=== PATIENT | female | born 1990 | race Caucasian/White ===

== ENCOUNTER 2016-07-13 12:26 | Emergency (ER) ==
[2016-07-13 12:34] VITALS: BP 129/84; TEMP 98.3; BMI 29.0
--- NOTE | 2016-07-13 13:19 | ED.PDOC ---
General ED Provider: Dr. MICHAEL FINE JR Chief Complaint: Tooth Problem Stated Complaint: WOKE UP THIS MORNING WITH FRONT TOOTH PAIN AFTER BRUSHING TEETH.[End]right left upper canine 0930 98.3 93 16 98% 129/84 01/02 depr anx- unable to see dr brush until next month or [facility] until next week is informed she will need two root canals Time Seen by Physician: 13:18 Mode of Arrival: Walk-In Information Source: Patient, Family Exam Limitations: No limitations Primary Care Provider: MAGDY WILKERSON Nursing and Triage Documentation Reviewed and Agree: No Review of Systems - Review Of Systems Constitutional: Reports: No symptoms Eyes: Reports: No symptoms Ears, Nose, Mouth, Throat: Reports: Mouth pain (tender upper outer incisiors symmetric cavities with loss of fillings now further crumbling) Respiratory: Reports: No symptoms Cardiac: Reports: No symptoms GI: Reports: No symptoms : Reports: No symptoms Musculoskeletal: Reports: No symptoms Skin: Reports: No symptoms Neurological: Reports: No symptoms Endocrine: Reports: No symptoms Hematologic/Lymphatic: Reports: No symptoms All Other Systems: Other Past Medical History - Past Medical History Previously Healthy: Yes Endocrine: Reports: None Cardiovascular: Reports: None Respiratory: Reports: None Hematological: Reports: None Gastrointestinal: Reports: None Genitourinary: Reports: None Neuro/Psych: Reports: Anxiety, Depression Musculoskeletal: Reports: None Cancer: Reports: None Last Menstrual Period: 07/12 Other 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 Medical 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 - Surgical History General Surgical History: Reports: Tonsillectomy, Adenoidectomy - Family History Family History: Reports: Other (mother in with gastroenteritis), Unknown - Social History Smoking Status: Current some day smoker Hx Substance Use: No Alcohol Screening: None - Immunizations Tetanus Shot up to Date: Yes Physical Exam - Physical Exam Appearance: Well-appearing Pain Distress: Moderate Eyes: ALEC, EOMI, Conjunctiva clear ENT: Oropharynx normal (except for tooth pain ntederness slight maxillary tenderness left >right) Neck: Supple Respiratory: Airway patent, Breath sounds clear, Breath sounds equal, Respirations nonlabored Cardiovascular: RRR, Pulses normal, No rub, No murmur GI/: Soft, Nontender, No masses, Bowel sounds normal, No Organomegaly Musculoskeletal: Normal strength, ROM intact, No edema, No calf tenderness Skin: Warm, Dry, Normal color Neurological: Sensation intact, Motor intact, Reflexes intact, Cranial nerves intact, Alert, Oriented Psychiatric: Affect appropriate, Mood appropriate Critical Care Note - Critical Care Note Total Time (mins): 0 Course - Course Vital Signs: Temp Pulse Resp BP Pulse Ox 07/13/16 12:27 98.3 F 93 H 16 129/84 98 Departure - Departure Time of Disposition: 13:30 Disposition: HOME SELF-CARE Discharge Problem: Toothache Instructions: Dental Caries (ED), Toothache (ED) Condition: Good Pt referred to PMD for follow-up: Yes Additional Instructions: antibiotic until gone Pyote for pain not controlled by ibuprofen follow up with dentist as soon as possible Prescriptions: Hydrocodone Bit/Acetaminophen [Pyote 5-325] 1 - 2 tab PO Q6HR PRN #12 tablet PRN Reason: pain Ibuprofen [Motrin] 600 mg PO QID PRN #30 tablet PRN Reason: PAIN Penicillin V Potassium 500 mg PO QID #28 tablet Allergies/Adverse Reactions: Allergies Sulfa (Sulfonamide Antibiotics) Adverse Reaction (Verified 07/13/16 12:34) HIVES/SWELLING Home Medications: Ambulatory Orders Alprazolam [Xanax] 0.5 mg PO TID PRN 08/27/15 Naproxen [Naprosyn] 500 mg PO DIRECTED PRN 04/01/16 Hydrocodone Bit/Acetaminophen [Pyote 5-325] 1 - 2 tab PO Q6HR PRN #12 tablet Ibuprofen [Motrin] 600 mg PO QID PRN #30 tablet 07/13/16 Penicillin V Potassium 500 mg PO QID #28 tablet 07/13/16
== END 2016-07-13 13:38 | disposition home or self-care (01) ==
LOC: ED 12:26
DX: K08.89 Other specified disorders of teeth and supporting structures (principal); K02.7 Dental root caries; F17.210 Nicotine dependence, cigarettes, uncomplicated
CPT/HCPCS: 99282

== ENCOUNTER 2016-09-04 11:10 | Emergency (ER) | payer OTHER ==
[2016-09-04 11:11] VITALS: BMI 29.0
[2016-09-04 11:17] VITALS: BP 116/82; TEMP 97.2
[2016-09-04] MEDS ORDERED: ZOFRAN 4 MG/2 ML IM STA (11:34)
[2016-09-04] MEDS ORDERED: MORPHINE 4 MG/ML SYRINGE IM STA (11:34)
[2016-09-04] MEDS ORDERED: TORADOL IM STA (11:35)
[2016-09-04 11:56] LABS: BASOPHILS # (AUTO) 0.1 K/uL (0-0.2); BASOPHILS % (AUTO) 0.6 % (0.0-3.0); EOSINOPHILS # (AUTO) 0.2 K/ul (0.0-0.7); EOSINOPHILS % (AUTO) 2.1 % (0.0-7.0); HEMATOCRIT 39.3 % (37.0-47.0); HEMOGLOBIN 13.3 g/dl (12.0-16.0); IMMATURE GRANULOCYTE % (AUTO) 0.1 % (0.0-5.0); LYMPHOCYTES # (AUTO) 2.6 K/uL (0.60-3.4); LYMPHOCYTES % (AUTO) 31.6 (10.0-50.0); MEAN CORPUSCULAR HEMOGLOBIN 30.8 pg (27.0-31.0); MEAN CORPUSCULAR HGB CONC 33.8 (31.8-35.4); MONOCYTES # (AUTO) 0.6 K/uL (0.4-2.0); NEUTROPHILS # (AUTO) 4.8 K/ul (2.0-6.9); NEUTROPHILS % (AUTO) 58.6; PLATELET COUNT 331 10^3/uL (140-440); RED BLOOD COUNT 4.32 10^6/ul (4.20-5.40); WHITE BLOOD COUNT 8.19 K/ul (4.6-10.2)
[2016-09-04 12:07] LABS: BILIRUBIN,URINE Negative (NEGATIVE); KETONES,URINE Negative (NEGATIVE); LEUKOCYTE ESTERASE ,URINE Negative (NEGATIVE); NITRITE,URINE Negative (NEGATIVE); PH,URINE 7.5 (5-9); PROTEIN,URINE Negative (NEGATIVE); URINE, BLOOD Negative (NEGATIVE)
[2016-09-04 12:10] LABS: ADD URINE MICROSCOPIC NO; URINE PREGNANCY INTERNAL QC INTERNAL QC VALID
[2016-09-04 12:15] LABS: ALBUMIN 3.6 g/dL (3.4-5.0); ALBUMIN/GLOBULIN RATIO 1.24; ANION GAP 12.1; BILIRUBIN,TOTAL 0.4 mg/dL (0.00-1.20); BUN/CREATININE RATIO 11.42; CALCIUM 9.2 mg/dL (8.2-10.2); CREATININE 0.7 mg/dL (0.60-1.30); POTASSIUM 4.1 mmol/L (3.5-5.10); TOTAL PROTEIN 6.5 g/dL (6.4-8.2)
--- NOTE | 2016-09-04 12:38 | CT ---
EXAM: CT of the abdomen pelvis without contrast History: Right lower quadrant abdominal pain and vomiting. Comparison: CT abdomen pelvis 05/27/2016 Technique: Multiplanar CT images through the abdomen pelvis were obtained without the administratio n of IV contrast Findings: Lung bases are free of consolidation. No acute osseous abnormalities. No renal stones and no hydronephrosis. The appendix is not dilated or inflamed. No discrete gallst ones identified by CT. No focal liver or splenic lesions. No bowel obstruction. No peripancreatic inflammation. Adrenal glands are unremarkable. No free air. Scattered colonic stool. No bladder wall thickening. Adnexal structures are not well evaluated without contrast material but demonstra te no grossly acute findings. Trace pelvic fluid can be physiologic in a young female patient. No perirectal inflammation. Small foci of subcutaneous air adjacent to the right lateral gluteal muscul ature, probably from injection Impression: No acute intra-abdominal or pelvic process.
--- NOTE | 2016-09-04 12:47 | ED.PDOC ---
General ED Provider: Dr. GONZALO BOYLE Chief Complaint: Abdominal Pain Stated Complaint: abdominal pain Time Seen by Physician: 11:11 (nursing present) Mode of Arrival: Walk-In Information Source: Patient Exam Limitations: No limitations Primary Care Provider: MAGDY WILKERSON Nursing and Triage Documentation Reviewed and Agree: Yes GI Complaint Exam - Abdominal Pain Complaint/Exam Onset: Gradual Duration: 1 day Symptoms Are: Still present Timing: Constant Initial Severity: Moderate Current Severity: Moderate Location of Pain: Discrete Alleviating: Reports: None Associated Signs and Symptoms: Denies: Diaphoresis, Fever, Cough, Chest pain, Dizziness, Back pain, Constipation, Blood in stool, Dysuria, Urinary frequency, Decreased urine output, Decreased appetite, Vaginal bleeding, Vaginal discharge , Nausea, Vomiting, Diarrhea, Sore throat, Decreased activity Related History: Reports: Similar episode AAA Risk Factors: Reports: None Cardiac Risk Factors: Reports: None Ectopic Risk Factors: Reports: None Ovarian Torsion Risk Factors: Reports: None Surgical Obstruction Risk Factors: Reports: None Related Surgical History: Reports: None Patient Rh Status: Unknown Abdominal Findings: Present: None Differential Diagnoses: Appendicitis, Bowel Obstruction, Constipation, Hepatitis , Pancreatitis Review of Systems - Review Of Systems Constitutional: Reports: No symptoms Eyes: Reports: No symptoms Ears, Nose, Mouth, Throat: Reports: No symptoms Respiratory: Reports: No symptoms Cardiac: Reports: No symptoms GI: Reports: Abdominal pain : Reports: No symptoms Musculoskeletal: Reports: No symptoms Skin: Reports: No symptoms Neurological: Reports: No symptoms Endocrine: Reports: No symptoms Hematologic/Lymphatic: Reports: No symptoms All Other Systems: Reviewed and Negative Past Medical History - Past Medical History Previously Healthy: Yes Endocrine: Reports: None Cardiovascular: Reports: None Respiratory: Reports: None Hematological: Reports: None Gastrointestinal: Reports: None Genitourinary: Reports: None Neuro/Psych: Reports: Anxiety, Depression Musculoskeletal: Reports: None Cancer: Reports: None Last Menstrual Period: 08/22/16 Other 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 Medical 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 - Surgical History General Surgical History: Reports: Tonsillectomy, Adenoidectomy - Family History Family History: Reports: Other (mother in with gastroenteritis), Unknown - Social History Smoking Status: Current some day smoker Hx Substance Use: No Alcohol Screening: None - Immunizations Tetanus Shot up to Date: Yes Physical Exam - Physical Exam Appearance: Well-appearing, No pain distress, Well-nourished Eyes: ALEC, EOMI, Conjunctiva clear ENT: Ears normal, Nose normal, Oropharynx normal Respiratory: Airway patent, Breath sounds clear, Breath sounds equal, Respirations nonlabored Cardiovascular: RRR, Pulses normal, No rub, No murmur GI/: Soft, Nontender, No masses, Bowel sounds normal, No Organomegaly Musculoskeletal: Normal strength, ROM intact, No edema, No calf tenderness Skin: Warm, Dry, Normal color Neurological: Sensation intact, Motor intact, Reflexes intact, Cranial nerves intact, Alert, Oriented Psychiatric: Affect appropriate, Mood appropriate Interpretation - Radiology Interpretation Radiology Interpretation By: Radiologist Radiology Results: No acute changes Critical Care Note - Critical Care Note Total Time (mins): 0 Course - Course Hematology/Chemistry: 09/04/16 11:45 09/04/16 11:45 Orders, Labs, Meds: Lab Review 09/04/16 09/04/16 11:45 12:00 WBC 8.19 RBC 4.32 Hgb 13.3 Hct 39.3 MCV 91.0 MCH 30.8 MCHC 33.8 RDW Coeff of Tomi 12.2 Plt Count 331 Immature Gran % (Auto) 0.1 Neut % (Auto) 58.6 Lymph % (Auto) 31.6 [place] % (Auto) 7.0 Eos % (Auto) 2.1 Baso % (Auto) 0.6 Immature Gran # (Auto) 0.0 Neut # 4.8 Lymph # 2.6 [place] # 0.6 Eos # 0.2 Baso # 0.1 Sodium 140 Potassium 4.1 Chloride 104 Carbon Dioxide 28 Anion Gap 12.1 BUN 8 Creatinine 0.70 Estimated GFR (MDRD) 101.00 BUN/Creatinine Ratio 11.42 Glucose 79 Calcium 9.2 Total Bilirubin 0.40 AST 20 ALT 15 Alkaline Phosphatase 67 Total Protein 6.5 Albumin 3.6 Globulin 2.9 Albumin/Globulin Ratio 1.24 Urine Color Yellow Urine Clarity Clear Urine pH 7.5 Ur Specific [place] 1.015 Urine Protein Negative Urine Glucose (UA) Negative Urine Ketones Negative Urine Blood Negative Urine Nitrite Negative Urine Bilirubin Negative Urine Urobilinogen 0.2 Ur Leukocyte Esterase Negative Urine Test Negative Orders Category Date Time Status CBC W/ AUTO DIFF Stat LAB 09/04/16 11:34 Ordered COMPREHENSIVE METABOLIC PANEL Stat LAB 09/04/16 11:34 Ordered URINALYSIS C & S IF INDICATED Stat LAB 09/04/16 11:34 Uncollected URINE Stat LAB 09/04/16 11:34 Uncollected Ketorolac Tromethamine [Toradol] MEDS 09/04/16 11:35 Stat 60 mg IM ONCE STA Morphine Sulfate [Morphine 4 mg/ml Syringe] MEDS 09/04/16 11:34 Stat 4 mg IM ONCE STA Ondansetron HCl/Pf [Zofran 4 mg/2 ml] MEDS 09/04/16 11:34 Stat 4 mg IM ONCE STA CT ABDOMEN/PELVIS WO CONTRAST Stat RADS 09/04/16 11:34 Ordered Medications Discontinued Medications Generic Name Dose Route Start Last Admin Trade Name Freq PRN Reason Stop Dose Admin Ketorolac Tromethamine 60 mg 09/04/16 11:35 09/04/16 11:59 Toradol IM 09/04/16 11:36 60 mg ONCE STA Administration Morphine Sulfate 4 mg 09/04/16 11:34 09/04/16 11:56 Morphine 4 Mg/Ml Syringe IM 09/04/16 11:35 4 mg ONCE STA Administration Ondansetron HCl 4 mg 09/04/16 11:34 09/04/16 11:58 Zofran 4 Mg/2 Ml IM 09/04/16 11:35 4 mg ONCE STA Administration Vital Signs: Temp Pulse Resp BP Pulse Ox 09/04/16 11:11 97.2 F L 84 20 116/82 98 Departure - Departure Time of Disposition: 12:47 Disposition: HOME SELF-CARE Discharge Problem: Abdominal pain Instructions: Abdominal Pain (ED) Condition: Good Pt referred to PMD for follow-up: No Additional Instructions: Please call your Family Physician as soon as possible to schedule a follow-up appointment. Allergies/Adverse Reactions: Allergies Sulfa (Sulfonamide Antibiotics) Adverse Reaction (Verified 09/04/16 11:18) HIVES/SWELLING Home Medications: Ambulatory Orders Alprazolam [Xanax] 0.5 mg PO TID PRN 08/27/15
== END 2016-09-04 13:01 | disposition home or self-care (01) ==
LOC: ED 11:10
DX: R10.9 Unspecified abdominal pain (principal); F17.210 Nicotine dependence, cigarettes, uncomplicated
CPT/HCPCS: 36415; 80053; 81001; 81025; 85025; 96372; 99283

== ENCOUNTER 2016-10-31 12:13 | Emergency (ER) ==
[2016-10-31 12:13] VITALS: BMI 29.0
[2016-10-31 12:18] VITALS: BP 110/74; TEMP 99.5
[2016-10-31] MEDS ORDERED: ZOFRAN 4 MG/2 ML IM STA (12:46)
[2016-10-31 12:56] LABS: BASOPHILS % (AUTO) 0.2 % (0.0-3.0); EOSINOPHILS % (AUTO) 0.3 % (0.0-7.0); HEMATOCRIT 39.1 % (37.0-47.0); HEMOGLOBIN 13.4 g/dl (12.0-16.0); IMMATURE GRANULOCYTE % (AUTO) 0.3 % (0.0-5.0); LYMPHOCYTES # (AUTO) 0.9 K/uL (0.60-3.4); LYMPHOCYTES % (AUTO) 8.8 (10.0-50.0); MEAN CORPUSCULAR HEMOGLOBIN 31.7 pg (27.0-31.0); MEAN CORPUSCULAR HGB CONC 34.3 (31.8-35.4); MEAN CORPUSCULAR VOLUME 92.4 fl (81.0-99.0); MONOCYTES # (AUTO) 0.3 K/uL (0.4-2.0); MONOCYTES % (AUTO) 3.5 (0-10); NEUTROPHILS # (AUTO) 8.4 K/ul (2.0-6.9); NEUTROPHILS % (AUTO) 86.9; PLATELET COUNT 289 10^3/uL (140-440); RED BLOOD COUNT 4.23 10^6/ul (4.20-5.40)
[2016-10-31 13:13] LABS: ALBUMIN 3.6 g/dL (3.4-5.0); ALBUMIN/GLOBULIN RATIO 1.2; BILIRUBIN,TOTAL 1.31 mg/dL (0.00-1.20); BUN/CREATININE RATIO 15.38; CALCIUM 9.1 mg/dL (8.2-10.2); CREATININE 0.78 mg/dL (0.60-1.30); TOTAL PROTEIN 6.6 g/dL (6.4-8.2)
[2016-10-31 13:14] LABS: SERUM PREGNANCY INTERNAL QC INTERNAL QC VALID
[2016-10-31 13:37] LABS: BILIRUBIN,URINE Negative (NEGATIVE); KETONES,URINE Negative (NEGATIVE); LEUKOCYTE ESTERASE ,URINE Negative (NEGATIVE); NITRITE,URINE Negative (NEGATIVE); PH,URINE 8.5 (5-9); PROTEIN,URINE Negative (NEGATIVE); URINE, BLOOD Trace-intact (NEGATIVE)
[2016-10-31 13:38] LABS: ADD URINE MICROSCOPIC YES
--- NOTE | 2016-10-31 13:48 | DI ---
EXAM: Chest two view, frontal and lateral views. HISTORY: Cough. COMPARISON: 08/27/2015. FINDINGS: The heart size is normal. There is no pulmonary vascular congestion. The lungs are yana r. No pleural effusion or pneumothorax is seen. No acute osseous abnormality identified. Since prior study, there has been no significant interval change. IMPRESSION: No acute cardiopulmonary process.
--- NOTE | 2016-10-31 13:52 | CT ---
EXAM: CT Abdomen without contrast. CT Pelvis without contrast. HISTORY: Diffuse abdominal pain. Vomiting, diarrhea, nausea. COMPARISON: 09/04/2016. TECHNIQUE: Multiple axial images of the abdomen and pelvis were obtained without intravenous contra st. Images were reformatted in the coronal plane. FINDINGS: Please note that evaluation of the abdominal and pelvic structures is limited due to lack of intravenous contrast. Lung bases are clear. No acute osseous abnormality identified. The liver, gallbladder, pancreas, spleen, adrenal glands, and kidneys demonstrate normal contour. The bowel is normal in course and caliber without evidence for obstruction or inflammatory process. Appendix is normal. Uterus demonstrates normal contour. Urinary bladder is not well distended. S mall amount of free pelvic fluid is within physiologic range. No free air identified. Multiple sma ll mesenteric lymph nodes are present. IMPRESSION: No acute abnormality within the abdomen or pelvis.
--- NOTE | 2016-10-31 14:24 | ED.PDOC ---
General ED Provider: Dr. GONZALO BOYLE Chief Complaint: Nausea/Vomiting Stated Complaint: n/v/ abdominal pain leg cramps Time Seen by Physician: 12:30 Information Source: Patient Exam Limitations: No limitations Primary Care Provider: MAGDY WILKERSON Nursing and Triage Documentation Reviewed and Agree: Yes Miscellaneous Complaint Exam - Complex/Multi-System Complaint/Exam Onset/Duration: pt has lower ext crapming pain with vomiting and diarrhea Symptoms Are: Resolved Episodes Lasting: Minutes Initial Severity: Moderate Current Severity: None Location of Pain: lower ext and abdomen Pain Radiates to: lower legs Character: cramping pain Associated Signs and Symptoms: Reports: Weakness, Nausea, Vomiting, Diarrhea, Abdominal pain. 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, Prior MRSA, Prior VRE, Recent trauma, Remote trauma Recent Echo/LV Function: No Respiratory Distress: None JVD Present: No Tachypnea Present: No Stridor Present: No Abdominal Findings: Present: Normal findings Glascow Coma Scale (see protocol): 15 Meningeal Signs Positive: No Focal Weakness: Present: None Focal Sensory Loss: Present: None Gait: Normal Gag Reflex Present: Yes Babinski Sign: Negative Right, Negative Left Skin Findings: Present: Normal findings Differential Diagnosis: Aspiration, Metabolic Abnormality Review of Systems - Review Of Systems Constitutional: Reports: Malaise, Weakness Eyes: Reports: No symptoms Ears, Nose, Mouth, Throat: Reports: No symptoms Respiratory: Reports: No symptoms Cardiac: Reports: No symptoms GI: Reports: Abdominal pain, Diarrhea, Nausea, Vomiting : Reports: No symptoms Musculoskeletal: Reports: No symptoms Skin: Reports: No symptoms Neurological: Reports: No symptoms Endocrine: Reports: No symptoms Hematologic/Lymphatic: Reports: No symptoms All Other Systems: Reviewed and Negative Past Medical History - Past Medical History Previously Healthy: Yes Endocrine: Reports: None Cardiovascular: Reports: None Respiratory: Reports: None Hematological: Reports: None Gastrointestinal: Reports: None Genitourinary: Reports: None Neuro/Psych: Reports: Anxiety, Depression Musculoskeletal: Reports: None Cancer: Reports: None Last Menstrual Period: 3 WEEKS Other 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 Medical 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 - Surgical History General Surgical History: Reports: Tonsillectomy, Adenoidectomy - Family History Family History: Reports: Other (mother in with gastroenteritis), Unknown - Social History Smoking Status: Current some day smoker Hx Substance Use: No Alcohol Screening: None Physical Exam - Physical Exam Appearance: Well-appearing, No pain distress, Well-nourished Eyes: ALEC, EOMI, Conjunctiva clear ENT: Ears normal, Nose normal, Oropharynx normal Respiratory: Airway patent, Breath sounds clear, Breath sounds equal, Respirations nonlabored Cardiovascular: RRR, Pulses normal, No rub, No murmur GI/: Soft, Nontender, No masses, Bowel sounds normal, No Organomegaly Musculoskeletal: Normal strength, ROM intact, No edema, No calf tenderness Skin: Warm, Dry, Normal color Neurological: Sensation intact, Motor intact, Reflexes intact, Cranial nerves intact, Alert, Oriented Psychiatric: Affect appropriate, Mood appropriate Critical Care Note - Critical Care Note Total Time (mins): 0 Course - Course Hematology/Chemistry: 10/31/16 12:45 10/31/16 12:45 Orders, Labs, Meds: Lab Review 10/31/16 10/31/16 12:45 13:20 WBC 9.70 RBC 4.23 Hgb 13.4 Hct 39.1 MCV 92.4 MCH 31.7 H MCHC 34.3 RDW Coeff of Tomi 13.0 Plt Count 289 Immature Gran % (Auto) 0.3 Neut % (Auto) 86.9 Lymph % (Auto) 8.8 L [place] % (Auto) 3.5 Eos % (Auto) 0.3 Baso % (Auto) 0.2 Immature Gran # (Auto) 0.0 Neut # 8.4 H Lymph # 0.9 [place] # 0.3 L Eos # 0.0 Baso # 0.0 Sodium 138 Potassium 4.0 Chloride 104 Carbon Dioxide 27 Anion Gap 11.0 BUN 12 Creatinine 0.78 Estimated GFR (MDRD) 89.00 BUN/Creatinine Ratio 15.38 Glucose 93 Calcium 9.1 Total Bilirubin 1.31 H AST 12 L ALT 11 L Alkaline Phosphatase 54 Total Protein 6.6 Albumin 3.6 Globulin 3.0 Albumin/Globulin Ratio 1.20 Serum , Qual Negative Urine Color Yellow Urine Clarity Clear Urine pH 8.5 Ur Specific [place] 1.015 Urine Protein Negative Urine Glucose (UA) Negative Urine Ketones Negative Urine Blood Trace-intact Urine Nitrite Negative Urine Bilirubin Negative Urine Urobilinogen 0.2 Ur Leukocyte Esterase Negative Urine Microscopic RBC 0-2 Ur Squamous Epith Cells Not present Orders Category Date Time Status CBC W/ AUTO DIFF Stat LAB 10/31/16 12:45 Completed COMPREHENSIVE METABOLIC PANEL Stat LAB 10/31/16 12:45 Completed SERUM Stat LAB 10/31/16 12:45 Completed URINALYSIS C & S IF INDICATED Stat LAB 10/31/16 13:20 Completed Ondansetron HCl/Pf [Zofran 4 mg/2 ml] MEDS 10/31/16 12:46 Discontinued 4 mg IM ONCE STA CHEST, 2 VIEWS PA & LAT Stat RADS 10/31/16 12:[address] ABDOMEN/PELVIS WO CONTRAST Stat RADS 10/31/16 12:44 Completed Medications Discontinued Medications Generic Name Dose Route Start Last Admin Trade Name Freq PRN Reason Stop Dose Admin Ondansetron HCl 4 mg 10/31/16 12:46 10/31/16 13:14 Zofran 4 Mg/2 Ml IM 10/31/16 12:47 4 mg ONCE STA Administration Vital Signs: Temp Pulse Resp BP Pulse Ox 10/31/16 12:14 99.5 F 95 H 16 110/74 98 Departure - Departure Time of Disposition: 14:25 (labs and imaging discussed with pt and family , pt unhappy stated her cramps persists , she contributes the cramps to low potassium levels i assured her serum k is 4.0 and requested for her to follow up with PMD) Disposition: HOME SELF-CARE Discharge Problem: Nausea, Vomiting Leg pain Qualifiers: Laterality: bilateral Qualifier Code: (M79.604) Pain in right leg Instructions: Leg Pain (ED), Abdominal Pain (ED) Condition: Good Pt referred to PMD for follow-up: No Additional Instructions: Please call your Family Physician as soon as possible to schedule a follow-up appointment. Allergies/Adverse Reactions: Allergies Sulfa (Sulfonamide Antibiotics) Adverse Reaction (Verified 09/04/16 11:18) HIVES/SWELLING Home Medications: Ambulatory Orders Alprazolam [Xanax] 0.5 mg PO TID PRN 08/27/15 Naproxen 500 mg PO BID PRN 10/31/16
== END 2016-10-31 15:08 | disposition home or self-care (01) ==
LOC: ED 12:13
DX: R11.2 Nausea with vomiting, unspecified (principal); M79.604 Pain in right leg; M79.605 Pain in left leg; R25.2 Cramp and spasm; R19.7 Diarrhea, unspecified; R53.1 Weakness; R10.9 Unspecified abdominal pain; F17.210 Nicotine dependence, cigarettes, uncomplicated
CPT/HCPCS: 36415; 80053; 81001; 84703; 85025; 96372; 99283

== ENCOUNTER 2016-11-17 14:09 | Emergency (ER) ==
[2016-11-17 14:17] VITALS: BP 125/84; TEMP 98.9; BMI 29.9
--- NOTE | 2016-11-17 14:26 | ED.PDOC ---
General ED Provider: Dr. ЕКАТЕРИНА SORENSEN Chief Complaint: Toe Pain/Injury Stated Complaint: Hyperflexed R great toe with fall Time Seen by Physician: 14:26 Mode of Arrival: Walk-In Information Source: Patient, Family Exam Limitations: No limitations Primary Care Provider: MAGDY WILKERSON Nursing and Triage Documentation Reviewed and Agree: Yes Review of Systems - Review Of Systems Constitutional: Reports: No symptoms Musculoskeletal: Reports: Joint pain (R great toe), Joint swelling Neurological: Reports: No symptoms All Other Systems: Reviewed and Negative Past Medical History - Past Medical History Previously Healthy: Yes Endocrine: Reports: None Cardiovascular: Reports: None Respiratory: Reports: None Hematological: Reports: None Gastrointestinal: Reports: None Genitourinary: Reports: None Neuro/Psych: Reports: Anxiety, Depression Musculoskeletal: Reports: None Cancer: Reports: None Last Menstrual Period: 11/09 Other 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 Medical 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 - Surgical History General Surgical History: Reports: Tonsillectomy, Adenoidectomy - Family History Family History: Reports: Other (mother in with gastroenteritis), Unknown - Social History Smoking Status: Current some day smoker Hx Substance Use: No Alcohol Screening: None - Immunizations Tetanus Shot up to Date: Yes Physical Exam - Physical Exam Appearance: Well-appearing Respiratory: Airway patent, Respirations nonlabored Musculoskeletal: Normal strength, ROM intact, Limited ROM (R distal foot) Skin: Warm, Dry Neurological: Sensation intact, Motor intact, Alert, Oriented Psychiatric: Affect appropriate, Mood appropriate Interpretation - Radiology Interpretation Radiology Interpretation By: Radiologist Radiology Results: Negative (R foot) Critical Care Note - Critical Care Note Total Time (mins): 7 Course - Course Orders, Labs, Meds: Orders Category Date Time Status FOOT, RIGHT 3 VIEWS Stat RADS 11/17/16 14:30 Completed Vital Signs: Temp Pulse Resp BP Pulse Ox 11/17/16 14:10 98.9 F 84 20 125/84 97 Departure - Departure Time of Disposition: 15:03 Disposition: HOME SELF-CARE Discharge Problem: Strain of foot, right Instructions: Swollen Joint (ED) Condition: Good Pt referred to PMD for follow-up: Yes (Call for appointment) Additional Instructions: Rest, cold to area off and on next 24 hours; follow up with primary care if not better in 3 or 4 days. Prescriptions: Tramadol HCl [Ultram] 50 mg PO Q6H #12 tablet Allergies/Adverse Reactions: Allergies Sulfa (Sulfonamide Antibiotics) Adverse Reaction (Verified 09/04/16 11:18) HIVES/SWELLING Home Medications: Ambulatory Orders Alprazolam [Xanax] 0.5 mg PO TID PRN 08/27/15 Naproxen 500 mg PO BID PRN 10/31/16 Tramadol HCl [Ultram] 50 mg PO Q6H #12 tablet 11/17/16
--- NOTE | 2016-11-17 14:57 | DI ---
EXAM: Right foot three view HISTORY: Pain right distal foot great toe COMPARISON: None FINDINGS: The bones are normal. The joints are normal. No focal soft tissue abnormality. IMPERSSION: Normal examination.
== END 2016-11-17 15:30 | disposition home or self-care (01) ==
LOC: ED 14:09
DX: S96.911A Strain of unspecified muscle and tendon at ankle and foot level, right foot, initial encounter (principal); W19.XXXA Unspecified fall, initial encounter; F17.210 Nicotine dependence, cigarettes, uncomplicated
CPT/HCPCS: 99283